=== PATIENT | male | born 1940 | race Caucasian/White ===

== ENCOUNTER → 2018-03-12 | Outpatient (REF) | payer MEDICARE, OTHER ==
[~2018-03-12] MED LIST: ACET-1966 PO; ACET-2146 PO; ASPI-1471 PO; ATOR40TA24 PO; DOCU-416 PO; GUAI-244 PO; IBUP-56 PO; LEVO-3 PO; LEVO75TA73 PO; MAGN1TAB2 PO; MAGN400T36 PO; MELA3TAB31 PO; METO25TA23 PO; MOM PO; MULT-839 PO; NPH,100V12 SQ; RIVA20TA PO; TAMS0.4C70 PO
== END ==
LOC: ZZSPRING 15:59
PROVIDERS: ATTEND Internal Medicine
DX: N40.0 Benign prostatic hyperplasia without lower urinary tract symptoms (principal); E11.9 Type 2 diabetes mellitus without complications; E03.9 Hypothyroidism, unspecified; R60.9 Edema, unspecified; Z86.73 Personal history of transient ischemic attack (TIA), and cerebral infarction without residual deficits
CPT/HCPCS: 81001